=== PATIENT | male | born 1980 | race Caucasian/White ===

== ENCOUNTER 2022-08-23 11:27 | Emergency (ER) | payer MEDICAID ==
[~2022-08-23] VITALS: Ht 172.7 cm; Wt 81.4 kg
[2022-08-23 11:33] VITALS: BP 136/72
[2022-08-23] MEDS ORDERED: BENZ1LOZ73 MT (13:58)
[2022-08-23] MEDS ORDERED: THROAT LOZENGES-BENZOCAINE/MENTH/CETYLPYRD CL LOZENGES MM PRN (14:00)
== END 2022-08-23 15:02 | disposition home or self-care (01) ==
LOC: ER 11:27
DX: J06.9 Acute upper respiratory infection, unspecified (principal); Z20.822 Contact with and (suspected) exposure to COVID-19
CPT/HCPCS: 87426; 99283

== ENCOUNTER 2024-03-12 18:57 | Emergency (ER) | payer MEDICAID ==
[~2024-03-12] VITALS: Ht 167.6 cm; Wt 70.0 kg
[~2024-03-12 18:57] MED LIST: BENZ1LOZ73 MT
[2024-03-12 18:59] VITALS: O2SAT 98
[2024-03-12] MEDS: SODIUM CHLORIDE 0.9% 1,000 ML IV ONE (19:26)
[2024-03-12] MEDS: ONDANSETRON HCL 4MG/2ML INJ IV STA (19:27)
[2024-03-12] MEDS: FAMOTIDINE 20MG/2ML VIAL IV STA (19:27)
[2024-03-12 20:08] LABS: BASOPHILS % 0.4 % (0.0-2.0); DIFFERENTIAL COMMENT 0; HEMATOCRIT. 43.5 % (42.0-52.0); HEMOGLOBIN. 14.6 g/dL (14.0-18.0); LYMPHOCYTES % 26.7 % (20.0-50.0); MEAN CORPUSCULAR HEMOGLOBIN 31.2 pg (28.0-32.0); MEAN CORPUSCULAR HGB CONC 33.6 g/dL (31.0-37.0); MONOCYTES % 13.4 % (2.0-8.0); NEUTROPHILS % 58.5 % (40.0-76.0); PLATELET 164 x1000/uL (130-400); RED BLOOD CELL COUNT 4.67 mill/uL (4.7-6.1); RED CELL DISTRIBUTION WIDTH 13.2 % (11.6-14.6); WHITE BLOOD COUNT 7.5 x1000/uL (4.5-11.0)
[2024-03-12] MEDS: KETOROLAC 15MG/ML VIAL IV ONE (20:13)
[2024-03-12 20:15] LABS: CHLORIDE 108 mEq/L (98-107); POTASSIUM 3.7 mEq/L (3.5-5.1); SODIUM 138 mEq/L (136-145)
[2024-03-12 20:16] LABS: CALCIUM 8.6 mg/dL (8.7-10.4); CARBON DIOXIDE 25 mEq/L (21-32)
[2024-03-12 20:21] LABS: CREATININE 0.8 mg/dL (0.6-1.3); GLUCOSE 109 mg/dL (70-105); UREA NITROGEN BLOOD 10 mg/dL (9-23)
[2024-03-12 20:23] LABS: ALANINE AMINOTRANSFERASE 35 IU/L (10-49); ASPARTATE AMINOTRANSFERASE 27 IU/L (<34); BILIRUBIN DIRECT 0.2 mg/dL (<=3.0)
[2024-03-12 20:24] LABS: BILIRUBIN TOTAL 0.6 mg/dL (0.1-1.0); PROTEIN TOTAL 6.4 g/dL (6.0-8.3)
[2024-03-12 20:25] LABS: PROTHROMBIN TIME 10.8 sec (9.6-11.0)
[2024-03-12 20:56] LABS: CLARITY URINE CLEAR (CLEAR); COLOR URINE YELLOW (YELLOW); GLUCOSE URINE NEGATIVE (NEGATIVE); KETONES URINE NEGATIVE (NEGATIVE); LEUKOCYTE ESTERASE URINE NEGATIVE (NEGATIVE); NITRITE URINE NEGATIVE (NEGATIVE); OCCULT BLOOD URINE 1+ (NEGATIVE); PROTEIN URINE NEGATIVE (NEGATIVE); SPECIFIC GRAVITY URINE 1.026 (1.005-1.030)
[2024-03-12 21:09] LABS: BACTERIA URINE NONE SEEN; SQUAMOUS EPITHELIAL CELL URINE 1+ /lpf (RARE/1+); WBC URINE 0-2 /hpf (0-2)
[2024-03-12 21:37] VITALS: BP 156/82; PULSE 98; RESP 21; TEMP 37.39188; O2SAT 98
[2024-03-12] MEDS ORDERED: ACET-2708 MT (21:51)
[2024-03-12] MEDS ORDERED: ONDA4TAB50 MT (21:51)
== END 2024-03-12 22:00 | disposition home or self-care (01) ==
LOC: ER 18:57
DX: B34.9 Viral infection, unspecified (principal); R10.12 Left upper quadrant pain
CPT/HCPCS: 99285; 74176; 96374; 96375; 96361; 80076; 80048; 81003; 83690; 85025; 85610; 36415; J3490; J1885; J2405; J7030

== ENCOUNTER 2024-11-03 11:36 | Emergency (ER) | payer MEDICAID ==
[~2024-11-03] VITALS: Ht 172.7 cm; Wt 78.2 kg
[~2024-11-03 11:36] MED LIST changes: +ACET-2708 MT; +ONDA4TAB50 MT
[2024-11-03 11:39] VITALS: O2SAT 99
[2024-11-03 11:58] VITALS: BP 142/93; PULSE 116; RESP 14; TEMP 38.2; O2SAT 99
[2024-11-03] MEDS: ACETAMINOPHEN 325MG TABLET PO STA (13:30)
[2024-11-03] MEDS: IBUPROFEN 600MG TABLET PO STA (13:32)
[2024-11-03] MEDS: SODIUM CHLORIDE 0.9% 1,000 ML IV ONE (13:57)
[2024-11-03] MEDS ORDERED: AMOX-494 MT (14:55)
== END 2024-11-03 15:03 | disposition home or self-care (01) ==
LOC: ER 11:36
DX: J18.9 Pneumonia, unspecified organism (principal); Z79.899 Other long term (current) drug therapy
CPT/HCPCS: 99283; 96360; 71045; J7030; 99284

== ENCOUNTER 2025-02-10 16:24 | Emergency (ER) | payer MEDICAID ==
[~2025-02-10] VITALS: Ht 170.2 cm; Wt 78.0 kg
[~2025-02-10 16:24] MED LIST changes: +AMOX-494 MT
[2025-02-10 16:30] VITALS: BP 137/93; TEMP 37.4; O2SAT 97
[2025-02-10 16:31] VITALS: PULSE 117; RESP 20; O2SAT 99
== END 2025-02-10 21:29 | disposition left against medical advice (07) ==
LOC: ER 16:24
DX: R50.9 Fever, unspecified (principal); R10.9 Unspecified abdominal pain; Z53.21 Procedure and treatment not carried out due to patient leaving prior to being seen by health care provider